=== PATIENT | male | born 1935 | race Caucasian/White ===

== ENCOUNTER → 2016-08-07 | Outpatient (CLI) | payer MEDICARE ==
[~2016-08-07] MED LIST: ATEN25TA PO; CALC500C16 PO; COLA100C PO; COUM1TAB17 PO; COUM2.5T11 PO; FENO160T10 PO; FERR32TA PO; LEVO50TA5 PO; MAPA325T2 PO; MILKSUS PO; OSTETAB7 PO; OXYB10TA PO; OYST1TAB8 PO; PEG1POW PO; SENN1TAB2 PO; SODIUM PHOSPHATE PR; TAMS0.4C2 PO; TRAM50TA2 PO; VITA-121 PO; [UNRECOGNIZED DRUG - CODE] IM; [UNRECOGNIZED DRUG - OTHER] PR
== END ==
LOC: M SMT 10:30
PROVIDERS: ATTEND Urology
DX: C61 Malignant neoplasm of prostate (principal)

== ENCOUNTER → 2016-08-10 | Outpatient (REF) | payer MEDICARE | LOC: EEVIPCON 12:55 → M SMT 12:55 | PROVIDERS: ATTEND Urology | DX: R39.9 Unspecified symptoms and signs involving the genitourinary system (principal); Z85.46 Personal history of malignant neoplasm of prostate | CPT/HCPCS: 81001; 87088; 87186; 96372; G0463; J9217 ==

== ENCOUNTER → 2016-09-11 | Outpatient (REF) | payer MEDICARE ==
[~2016-09-11] MED LIST changes: -COLA100C PO; +COLA100C3 PO
[2016-09-11 13:42] LABS: TOTAL PROTEIN 7.5 GM/DL (6.4-8.2)
[2016-09-13 11:33] LABS: ALBUMIN 4.02 GM/DL (3.29-5.55); ALBUMIN % 53.6 % (55.8-66.1); GAMMA GLOBULIN % 18.7 % (11.1-18.8)
[2016-09-15 00:06] LABS: FREE KAPPA LIGHT CHAINS SERUM 34.22 mg/L (3.30-19.40); FREE LAMBDA LIGHT CHAINS SERUM 21.16 mg/L (5.71-26.30); KAPPA/LAMBDA RATIO SERUM 1.62 (0.26-1.65)
== END ==
LOC: M LAB REF 12:50
PROVIDERS: ATTEND Internal Medicine Medical Oncology
DX: D47.2 Monoclonal gammopathy (principal)
CPT/HCPCS: 83883; 84165; G0463